=== PATIENT | male | born 1980 | race Caucasian/White ===

== ENCOUNTER → 2020-03-20 16:01 | Outpatient (BNVA) | payer OTHER, SELFPAY | PROVIDERS: Family Provider Family Medicine; Referring Provider Dermatology; Visit Provider Dermatology | DX: Z12.83 Encounter for screening for malignant neoplasm of skin (principal); L73.9 Follicular disorder, unspecified; D22.9 Melanocytic nevi, unspecified; L81.2 Freckles; L91.8 Other hypertrophic disorders of the skin; D17.9 Benign lipomatous neoplasm, unspecified | CPT/HCPCS: 99203 ==

== ENCOUNTER → 2020-05-31 16:41 | Outpatient (BNVA) | payer OTHER, SELFPAY | PROVIDERS: Family Provider Family Medicine; Visit Provider Orthopaedic Surgery | DX: M25.561 Pain in right knee (principal) | CPT/HCPCS: 73560; 73565 ==

== ENCOUNTER → 2024-03-02 10:38 | Outpatient (BNVA) | payer OTHER, SELFPAY | PROVIDERS: Family Provider Family Medicine; Visit Provider Family Medicine | DX: E66.9 Obesity, unspecified (principal) | CPT/HCPCS: 80053; 80061; 83036; 84439; 84443; 85025 ==